=== PATIENT | female | born 1960 | race African-American/Black ===

== ENCOUNTER 2017-08-10 07:27 | Day surgery (SDC) | payer OTHER ==
[2017-08-04 11:59] LABS: HEMATOCRIT 36.2 % (36.0-47.0); HEMOGLOBIN 11.7 g/dL (12.0-15.5); MEAN CORPUSCULAR HEMOGLOBIN 24.9 pg (27.0-33.4); MEAN CORPUSCULAR HGB CONC 32.2 g/dL (32.0-36.0); MEAN CORPUSCULAR VOLUME 77 fl (80-97); PLATELET COUNT 253 10^3/uL (150-450); RED BLOOD COUNT 4.67 10^6/uL (3.72-5.28); RED CELL DISTRIBUTION WIDTH 16.1 % (11.5-14.0); WHITE BLOOD COUNT 5.8 10^3/uL (4.0-10.5)
[2017-08-04 12:23] LABS: ANION GAP 9 (5-19); BLOOD UREA NITROGEN 17 mg/dL (7-20); CARBON DIOXIDE 30 mmol/L (22-30); CHLORIDE 104 mmol/L (98-107); GLUCOSE 87 mg/dL (75-110); POTASSIUM 4.7 mmol/L (3.6-5.0); SODIUM 142.7 mmol/L (137-145)
--- NOTE | 2017-08-04 14:05 | EKG REPORT ---
SEVERITY:- NORMAL ECG - SINUS RHYTHM : Confirmed by: He Hyatt MD 04-Aug-2017 14:04:26
[~2017-08-10 07:27] MED LIST: ACETAMINOPHEN 100 ML IV ONE; BACITRACIN INJ 50,000 UNIT VIAL ONE; BUPIVACAINE HCL 0.25 % INJ/PF (2.5 MG/1 ML) 30 ML VIAL ONE; CEFAZOLIN 1 GM/D5W RTU 1 GM/50 ML RTUPB IV PRN; FENTANYL CITRATE INJ/PF 100 MCG/2 ML AMPUL ONE; KETAMINE HCL INJ 500 MG/10 ML VIAL ONE; LACTATED RINGERS 1000 ML IV PRN; LIDOCAINE 0.5% INJ-PF (5 MG/ML) 50 ML SDV ONE; LIDOCAINE 0.5% INJ-PF (5 MG/ML) 50 ML SDV SUBCUT PRN; MIDAZOLAM 2 MG/2 ML INJ ONE; PROPOFOL INJ 200 MG/20 ML VIAL IV ONE
[2017-08-10] MEDS ORDERED: DIPHENHYDRAMINE HCL 50 MG/ML VIAL IV PRN (08:31)
[2017-08-10] MEDS ORDERED: FENTANYL CITRATE INJ/PF 100 MCG/2 ML AMPUL IV PRN ×3 (08:31)
[2017-08-10] MEDS ORDERED: ONDANSETRON HCL INJ/PF 4 MG/2 ML SDV IV PRN (08:31)
[2017-08-10] MEDS ORDERED: MEPERIDINE HCL/PF INJ 25 MG/1 ML DISP.SYRIN IV PRN (08:31)
[2017-08-10] MEDS ORDERED: PROMETHAZINE HCL INJ 25 MG/1 ML VIAL IV PRN ×2 (08:31)
[2017-08-10] MEDS ORDERED: FENTANYL CITRATE INJ/PF 100 MCG/2 ML AMPUL ONE (09:35)
[2017-08-10] MEDS ORDERED: EPHEDRINE SULFATE INJ 50 MG/1 ML AMPULE ONE (09:55)
--- NOTE | 2017-08-10 10:13 | Discharge Summary ---
Discharge Summary (SDC) - Discharge Final Diagnosis: Subcutaneous mass of left arm area. Date of Surgery: 08/10/17 Discharge Date: 08/10/17 Condition: Good Treatment or Instructions: Discharge home [after recovery per ASU criteria]. Diet , as tolerated, when fully awake advance as tolerated. Activities within moderation encouraged. Follow up in my office by appointment in about [1 week]. Call for appointment. Leave wounds [covered], [keep clean and dry, until office visit in 1 week]. Empty KINGSLEY drain as needed. Hold of on school/work [until evaluation in office]. Meds per med rec. Percocet prescription. May shower [in 48 hrs], [try to keep operated area as dry as possible]. Prescriptions: Oxycodone HCl/Acetaminophen [Percocet 5-325 mg Tablet] 1 tab PO ASDIR PRN #15 tab PRN Reason: Referrals: CAREN CABALLERO FNP [Primary Care Provider] - Discharge Diet: As Tolerated Respiratory Treatments at Home: Deep Breathing/Coughing Discharge Activity: Activity As Tolerated Report the Following to Your Physician Immediately: Shortness of Breath, Unusual Bleeding
--- NOTE | 2017-08-10 10:17 | Operative Report ---
Operative Report DATE OF SURGERY: 08/10/17 PREOPERATIVE DIAGNOSIS: Suspicious subcutaneous mass of the left arm, deltoid area. POSTOPERATIVE DIAGNOSIS: Pending pathology. OPERATION: Wide excision of subcutaneous mass of left deltoid area. SURGEON: ANTOINETTE ALFARO [employer] REPRESENTATIVE: KARLA PERDOMO ANESTHESIA: GA TISSUE REMOVED OR ALTERED: Subcutaneous mass of left deltoid area. COMPLICATIONS: None. ESTIMATED BLOOD LOSS: 5 mL. INTRAOPERATIVE FINDINGS: Of an irregular mass which appeared complex on ultrasound. Measuring approximately 2.5 x 2.5 cm. Situated in the lateral upper left arm, deltoid area. Slight skin dimpling appreciated. Mass excised down to and including the fascia over the deltoid muscle. Clear margin by visual inspection, sticks estimated 5 mm margin. The area of skin dimpling was included in the specimen. Gross interpretation by Dr. Mahesh Guzman suggests that this is something unusual. He is unable to comment at this time before final pathology. This information was conveyed to the patient. PROCEDURE: PROCEDURE: The left arm and deltoid was prepared with [chlorhexidine] and draped out with sterile linen. After the"universal time-out", in which it was confirmed that the patient [did receive antibiotic], the procedure commenced. The patient was appropriately anesthetized. The lesion was sketched in marking ink, as well as the proposed incision. In particular the long axis of the oval incision was sketched along the long axis of the limb. A dilute solution of local anesthesia was generously infiltrated in the skin and subcutaneous tissues above and around the mass. An incision was made transversely and in an oval fashion. This went through to the subcutaneous tissues. Dissection now proceeded in the subcutaneous tissue circumferentially around the mass and then finally posterior to it. Including the fascia overlying the deltoid muscle. In this way the entire mass was [ removed and submitted for pathology]. Traction was held on the skin which was removed [using a Oleg clamp]. The wound was irrigated with [saline] . Meticulous hemostasis was secured in the wound. This was done using [cautery and also interrupted sutures of 3-0 PDS]. [The wound was irrigated once more with sterile saline solution]. The wound was now closed using [a single layer of interrupted vertical mattress sutures. These were of 3-0 PDS]. A sterile dressing was applied and the procedure concluded. The maintenance assistant provided retraction, thus facilitating the operative view. Controlled bleeding. The maintenance assistant also followed the suturing, thus facilitating accurate suture placement. Sutured skin and applied dressings. It is to be noted that the specimen was oriented with a long black stitch on the superior margin and a short black stitch on the lateral margin. It is to be noted that this was reversed on the specimen form and will be personally corrected in pathology with Dr. Guzman and his team.
[2017-08-10 11:22] VITALS: BP 133/79
[2017-08-10] MEDS ORDERED: METOCLOPRAMIDE HCL INJ/PF 10 MG/2 ML SDV ONE (13:43)
[2017-08-10] MEDS ORDERED: DEXAMETHASONE SOD PHOSPHATE INJ 4 MG/1 ML VIAL ONE (13:43)
[2017-08-10] MEDS ORDERED: LIDOCAINE 2% INJ-PF (20 MG/ML) 2 ML AMPUL ONE (13:43)
[2017-08-10] MEDS ORDERED: SUCCINYLCHOLINE CHLORIDE INJ 200 MG/10 ML VIAL ONE (13:43)
[2017-08-10] MEDS ORDERED: ONDANSETRON HCL INJ/PF 4 MG/2 ML SDV ONE (13:43)
[2017-08-10] MEDS ORDERED: KETOROLAC TROMETHAMINE 60 MG/2 ML SDV ONE (13:43)
== END 2017-08-10 11:20 | disposition home or self-care (01) ==
LOC: OROUT 07:27
PROVIDERS: ATTEND Surgery
PROC: 0JBF0ZZ Excision of Left Upper Arm Subcutaneous Tissue and Fascia, Open Approach (ICD-10-PCS; principal; 2017-08-10 09:30)
DX: M79.9 Soft tissue disorder, unspecified (principal); I10 Essential (primary) hypertension; R73.03 Prediabetes; Z88.8 Allergy status to other drugs, medicaments and biological substances; Z79.84 Long term (current) use of oral hypoglycemic drugs; Z79.899 Other long term (current) drug therapy; M17.0 Bilateral primary osteoarthritis of knee
CPT/HCPCS: 93005; 36415; 82962; 85027; 80048; 88342 ×2; 88341 ×2; 88305 ×2; 93010; 24075; J2250; J3490 ×4; J0690; J1100; J1885; J3010; J2765; J0330; J2405; J2704; J0131; 400